=== PATIENT | male | born 1930 | race Hispanic/Latino ===

== ENCOUNTER 2017-01-18 15:00 | Observation (INO) | payer MEDICARE, BC ==
--- NOTE | 2017-01-18 15:49 | ED PDOC ---
Arrival/HPI - General Chief Complaint: Weakness/Neurological Deficit Time Seen by Provider: 01/18/17 15:01 Historian: Patient - History of Present Illness Narrative History of Present Illness (Text): 01/18/17 15:17 A 86 year old male, whose past medical history includes asthma, CAD with stent , diabetes mellitus and COPD, who presents to the emergency department complaining of the inability to speak, a cloudy sensation in the head, generalized weakness, and overall just not "feel well." Patient notes he has the episodes yesterday and again upon awaking this morning. Patient denies any headaches, body aches, unilateral weakness, fever, chills, pains or any other complaints at this time. 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 PMD: Dr. Hein Justice [address] Deputy Clerk: Dr. Sousa Time/Duration: Other Symptom Onset: Sudden Symptom Course: Intermittent Quality: Other Activities at Onset: Rest Context: Home Past Medical History - Provider Review Nursing Documentation Reviewed: Yes - Infectious Disease Hx of Infectious Diseases: None - Cardiac Hx Cardiac Disorders: Yes Hx Hypertension: Yes - Pulmonary Hx Chronic Obstructive Pulmonary Disease (COPD): Yes - Neurological Hx Neurological Disorder: No - HEENT Hx HEENT Disorder: No - Renal Hx Renal Disorder: No - Endocrine/Metabolic Hx Diabetes Mellitus Type 2: Yes - Hematological/Oncological Hx Blood Disorders: No - Integumentary Hx Dermatological Disorder: No - Musculoskeletal/Rheumatological Hx Falls: No - Gastrointestinal Hx Gastrointestinal Disorders: No Hx Gastroesophageal Reflux: Yes - Genitourinary/Gynecological Hx Genitourinary Disorders: Yes Hx Prostate Problems: Yes (enlarged) Other/Comment: yeast infections when taking abx - Psychiatric Hx Psychophysiologic Disorder: Yes Hx Anxiety: Yes Hx Substance Use: No - Surgical History Hx Cardiac Catheterization: Yes Hx Coronary Stent: Yes Hx Joint Replacement: Yes (right knee) Other/Comment: 30 yrs ago pt was in and acident injured r knee needed cartilage removed, about 2 yrs ago pt had right kne replaced, cysto for retention and enlarged prostate Family/Social History - Physician Review Nursing Documentation Reviewed: Yes Family/Social History: Unknown Family HX Smoking Status: Former Smoker Hx Alcohol Use: No Hx Substance Use: No Allergies/Home Meds Allergies/Adverse Reactions: Allergies ciprofloxacin [From Cipro] Allergy (Verified 01/18/17 15:17) RASH lactose Allergy (Verified 01/18/17 15:17) DIARRHEA Home Medications: Home Meds Medication Instructions Recorded Confirmed Albuterol 1 inh INH PRN PRN 07/13/15 07/13/15 Amoxicillin/Clavulanate Pota 1 tab PO BID 07/13/15 07/13/15 [Augmentin 875 mg-125 mg] Aspirin [Aspirin Chewable] 81 mg PO DAILY 07/13/15 07/17/15 FLUoxetine [Prozac] 20 mg PO DAILY 07/13/15 07/17/15 Fenofibrate [Tricor] 1 tab PO DAILY 07/13/15 07/13/15 Glimepiride [amaRYL] 4 mg PO DAILY 07/13/15 07/17/15 Magnesium Oxide [Mag-Ox] 500 mg PO BID 07/13/15 07/17/15 Metoprolol Succinate 25 mg PO DAILY 07/13/15 07/17/15 Omeprazole [Prilosec] 40 mg PO DAILY 07/13/15 07/17/15 Prednisone [Cordrol] 20 mg PO DAILY 07/13/15 07/17/15 Tamsulosin [Flomax] 2 cap PO DAILY 07/13/15 07/17/15 Review of Systems - Physician Review All systems were reviewed & negative as marked: Yes - Review of Systems Constitutional: Fatigue, Other (no chills). absent: Fevers Eyes: absent: Vision Changes Cardiovascular: absent: Chest Pain Gastrointestinal: absent: Abdominal Pain Musculoskeletal: absent: Back Pain, Neck Pain, Myalgias Neurological: Speech Changes, Other (cloudy sensation in head; no unilateral weakness; no numbness). absent: Headache Physical Exam Vital Signs Reviewed: Yes Vital Signs Temp Pulse Resp BP Pulse Ox 01/18/17 16:49 75 18 114/49 L 100 01/18/17 15:00 98.6 F 66 18 118/57 L 98 Temperature: Afebrile Blood Pressure: Hypotensive Pulse: Regular Respiratory Rate: Normal Appearance: Positive for: Well-Appearing, Non-Toxic, Comfortable Pain Distress: None Mental Status: Positive for: Alert and Oriented X 3 Finger Stick Blood Glucose: 217 - Systems Exam Head: Present: Atraumatic, Normocephalic Pupils: Present: PERRL Extroacular Muscles: Present: EOMI Conjunctiva: Present: Normal Mouth: Present: Moist Mucous Membranes Neck: Present: Normal Range of Motion Respiratory/Chest: Present: Clear to Auscultation, Good Air Exchange. No: Respiratory Distress, Accessory Muscle Use Cardiovascular: Present: Regular Rate and Rhythm, Normal S1, S2. No: Murmurs Abdomen: Present: Normal Bowel Sounds. No: Tenderness, Distention, Peritoneal Signs Upper Extremity: Present: Normal Inspection. No: Cyanosis, Edema Lower Extremity: Present: Edema (2+ pitting edema bilaterally) Neurological: Present: GCS=15, CN II-XII Intact, Speech Normal, Motor Func Grossly Intact, Normal Sensory Function Skin: Present: Warm, Dry, Normal Color. No: Rashes Psychiatric: Present: Alert, Oriented x 3, Normal Insight, Normal Concentration Medical Decision Making ED Course and Treatment: 01/18/17 15:17 Impression: A 86 year old male with cloudy sensation, generalized weakness, and inability to speak well. Differential Diagnosis included but are not limited to: stroke vs. electrolyte abnormalities vs. heat exhaustion Plan: -- EKG -- Head CT -- Chest x-ray -- Labs -- Urinalysis -- Reassess and disposition Prior Visits: Notes and results from previous visits were reviewed. Patient was last seen in the Emergency department on 07/13/15 with complaints of coughing and wheezing. Patient was hospitalized. Progress Notes: EKG: Ordered, reviewed, and independently interpreted the EKG. Rate : 70 BPM Rhythm : Sinus rhythm Interpretation : PVC's; 1st degree AV block Comparison : No change from previous EKG on 07/13/15 for comparison. Report Date : 01/18/2017 16:35:22 Radiography Technician : Lauryn Hood MD PROCEDURE: CT HEAD WITHOUT CONTRAST. FINDINGS: HEMORRHAGE:No intracranial hemorrhage. BRAIN:There are moderate chronic microangiopathic changes. There is no mass, mass effect or abnormal extra-axial fluid collection. VENTRICLES:There is moderate age-related global parenchymal volume loss and proportionate enlargement of the ventricles and cortical sulci. CALVARIUM:The skull base and calvarium are normal. PARANASAL SINUSES:Predominantly clear. MASTOID AIR CELLS:Predominantly clear. OTHER FINDINGS:None. IMPRESSION: No acute intracranial abnormality. If there is a persistent focal neurologic deficit and an ongoing clinical concern for acute infarction, an MRI of the brain without intravenous contrast would be a more sensitive modality for evaluation of hyperacute/acute ischemic infarction. Moderate chronic microangiopathic changes and moderate age-related global parenchymal volume loss. 01/18/17 17:26 CT Head negative. Aspirin PO ordered. Patient comfortable now and in no acutre distress. Discussed case with Dr. Hein who will place on her service. - Lab Interpretations Lab Results: 01/18/17 15:40 01/18/17 15:40 Lab Results 01/18/17 15:40: Blood Type A POSITIVE, Antibody Screen Negative, BBK History Checked No verified bt 01/18/17 15:40: Sodium 134, Potassium 4.0, Chloride 99, Carbon Dioxide 27, Anion Gap 12, BUN 23 H, Creatinine 1.0, Est GFR ( Amer) > 60, Est GFR ( Non-Af Amer) > 60, Random Glucose 209 H, Calcium 9.4, Total Bilirubin 0.8, AST 48, ALT 42, Alkaline Phosphatase 45, Troponin I < 0.01, NT-Pro-B Natriuret Pep 145, Total Protein 6.3, Albumin 3.8, Globulin 2.5, Albumin/Globulin Ratio 1.5, Triglycerides 257 H, Cholesterol 117 L, LDL Cholesterol Direct 50, HDL Cholesterol 39 01/18/17 15:40: PT 12.6 H, INR 1.17 H, APTT 26.1 01/18/17 15:40: WBC 5.2, RBC 4.15, Hgb 13.6 L, Hct 39.0 L, MCV 94.0, MCH 32.8, MCHC 34.9, RDW 13.3, Plt Count 76 L, MPV 11.0, Gran % 70.9 H, Lymph % (Auto) 21.2 L, [place] % (Auto) 6.0, Eos % (Auto) 1.7, Baso % (Auto) 0.2, Gran # 3.67, Lymph # 1.1 L, [place] # 0.3, Eos # 0.1, Baso # 0.01 I have reviewed the lab results: Yes - RAD Interpretation Radiology Orders: 01/18/17 15:21 HEAD W/O CONTRAST [CT] Stat CHEST PORTABLE [RAD] Stat - Medication Orders Current Medication Orders: Discontinued Medications Aspirin (Aspirin) 325 mg PO STAT STA Stop: 01/18/17 16:54 NIHSS Scale ([place]) Time Performed: 15:17 - How Severe is the Stoke Baseline Level of Consciousness: 0=Alert LOC to Questions: 0=Both comments correct LOC to commands: 0=Obeys both correctly Best Gaze: 0=Normal Visual: 0=No visual loss Facial: 0=Normal Motor Arm - Left: 0=No drift Motor Arm - Right: 0=No drift Motor Leg - Left: 0=No drift Motor Leg - Right: 0=No drift Limb Ataxia: 0=Absent Sensory: 0=Normal Best Language: 0=No aphasia Dysarthia: 0=Normal articulation Extinction & Inattention (Neglect): 0=Normal, no object Score: 0 Risk Level: No Stroke Risk rTPA Inclusion/Exclusion - Refusal of Treatment Patient Refused Treatment: No - Inclusion Criteria for Altepase Patient is 18 years or Older: Yes The Clinical Diagnosis of Ischemic Stroke That is Causing a Potentially Disabling Neurological Deficit: No Time of Onset is Well Established to be Less Than 270 Minute Before Treatment Would Begin: No Risk/Benefit Discussed With Patient/Family Member Present: No - Scribe Statement The provider has reviewed the documentation as recorded by the Scribkm Francois training under [facility] Provider Scribe Attestation: All medical record entries made by the Scribe were at my direction and personally dictated by me. I have reviewed the chart and agree that the record accurately reflects my personal performance of the history, physical exam, medical decision making, and the department course for this patient. I have also personally directed, reviewed, and agree with the discharge instructions and disposition. Disposition/Present on Arrival - Present on Arrival Any Indicators Present on Arrival: No History of DVT/PE: No History of Uncontrolled Diabetes: No Urinary Catheter: No History of Decub. Ulcer: No History Surgical Site Infection Following: None - Disposition Have Diagnosis and Disposition been Completed?: Yes Diagnosis: CVA (cerebral vascular accident) Disposition Time: 17:25 Patient Plan: Observation Condition: FAIR Referrals: Selvin Hein MD [Primary Care Provider] - Follow up with primary
[2017-01-18 15:51] LABS: ADD MANUAL DIFF? NO
[2017-01-18 15:58] LABS: BASO # 0.01 K/mm3 (0.0-2.0); BASO % 0.2 % (0.0-3.0); EOS # 0.1 (0.0-0.7); EOS % 1.7 % (1.5-5.0); GRAN # 3.67 (1.4-6.5); GRAN % 70.9 % (50.0-68.0); LYMPH # 1.1 (1.2-3.4); LYMPH % 21.2 % (22.0-35.0); MEAN CORPUSCULAR HEMOGLOBIN 32.8 pg (25.0-35.0); MEAN CORPUSCULAR HGB CONC 34.9 g/dl (31.0-37.0); MONO # 0.3 (0.1-0.6); PLATELET COUNT 76 10^3/uL (120.0-450.0); RED CELL DISTRIBUTION WIDTH 13.3 % (11.5-14.5); WHITE BLOOD COUNT 5.2 10^3/ul (4.5-11.0)
[2017-01-18 16:16] LABS: ALB/GLOB RATIO 1.5 (1.1-1.8); ALKALINE PHOSPHATASE 45 U/L (38-133); ALT/SGPT 42 U/L (7-56); AST/SGOT 48 U/L (15-59); BILIRUBIN,TOTAL 0.8 mg/dL (0.2-1.3); BLOOD UREA NITROGEN 23 mg/dL (7-21); CALCIUM 9.4 mg/dL (8.4-10.5); CARBON DIOXIDE 27 mmol/L (21-33); CHLORIDE 99 mmol/L (98-107); CHOLESTEROL 117 mg/dL (130-200); GFR AFRICAN-AMERICAN > 60; GLUCOSE,RANDOM 209 mg/dL (70-110); SODIUM 134 mmol/L (132-148); TOTAL PROTEIN 6.3 g/dL (5.8-8.3)
[2017-01-18 16:32] LABS: TROPONIN I < 0.01 ng/mL
--- NOTE | 2017-01-18 16:37 | CT ---
PROCEDURE: CT HEAD WITHOUT CONTRAST. HISTORY: trouble speaking well r/o CVA COMPARISON: None available. TECHNIQUE: Axial computed tomography images were obtained through the head/brain without intravenous contrast. Radiation dose: Total exam DLP = 774.23 mGy-cm. This CT exam was performed using one or more of the following dose reduction techniques: Automated exposure control, adjustment of the mA and/or kV according to patient size, and/or use of iterative reconstruction technique. FINDINGS: HEMORRHAGE: No intracranial hemorrhage. BRAIN: There are moderate chronic microangiopathic changes. There is no mass, mass effect or abnormal extra-axial fluid collection. VENTRICLES: There is moderate age-related global parenchymal volume loss and proportionate enlargement of the ventricles and cortical sulci. CALVARIUM: The skull base and calvarium are normal. PARANASAL SINUSES: Predominantly clear. MASTOID AIR CELLS: Predominantly clear. OTHER FINDINGS: None. IMPRESSION: No acute intracranial abnormality. If there is a persistent focal neurologic deficit and an ongoing clinical concern for acute infarction, an MRI of the brain without intravenous contrast would be a more sensitive modality for evaluation of hyperacute/acute ischemic infarction. Moderate chronic microangiopathic changes and moderate age-related global parenchymal volume loss.
[2017-01-18 17:07] LABS: INR 1.17 (0.93-1.08); PARTIAL THROMBOPLASTIN TIME 26.1 Seconds (23.7-30.8)
[2017-01-18 18:39] LABS: URINE APPEARANCE CLEAR (CLEAR); URINE BILIRUBIN NEGATIVE (NEGATIVE); URINE BLOOD NEGATIVE (NEGATIVE); URINE COLOR YELLOW (YELLOW); URINE GLUCOSE (UA) 100 mg/dL (NEGATIVE); URINE KETONE NEGATIVE (NEGATIVE); URINE LEUKOCYTE ESTERASE NEGATIVE Leu/uL (NEGATIVE); URINE PROTEIN NEGATIVE mg/dL (<30 mg/dL); URINE UROBILINOGEN 0.2 E.U./dL (<1 E.U./dL)
[2017-01-18] MEDS ORDERED: Magnesium Oxide 400 mg Tab UD PO SCH (19:15)
--- NOTE | 2017-01-18 19:37 | CON ---
DATE: 01/18/2017 HISTORY OF PRESENT ILLNESS: This is an 86-year-old white male with a past medical history of coronar y artery disease, asthma, diabetes, COPD, who came to the Emergency Room with the complaint of inabil ity to speak and a cloudy sensation in the head and generalized weakness. Called to evaluate the pat ient. Symptoms improved. At home he could not walk. Now he can walk. Denies any headache, no dizzi ness. PAST MEDICAL HISTORY: Coronary artery disease, diabetes, COPD. REVIEW OF SYSTEMS: A 10-point review of system was negative as noted above. ALLERGIES: TO CIPROFLOXACIN AND LACTULOSE. PHYSICAL EXAMINATION: VITAL SIGNS: Blood pressure 118/57. HEENT: Normocephalic, atraumatic. NECK: Supple. NEUROLOGIC: Alert, awake, oriented x 3. No aphasia. Cranial nerves II-XII were tested. Pupils yasmine ctive. EOM intact. Visual omer full. No facial asymmetry. Tongue midline. Motor examination: Moves all the extremities equally. Tone normal. Deep tendon reflexes 1+. Both plantars are downgoi ng. Sensory appears intact. Cerebellar, gait normal. IMPRESSION AND PLAN: Transient ischemic attack. CAT scan of the head was done, which was reported n egative. Workup in progress. Will follow up. Kailash Concepcion MD cc: [id number] TT: 01/18/2017 19:37:07 Confirmation # [id number] Dictation # [id number] juan jose
--- NOTE | 2017-01-18 20:07 | HP ---
HISTORY OF PRESENT ILLNESS: The patient is an 86-year-old, known to me from previous admission. Arian gann came from [place] to visit her daughter. She states that he was working in the back yard [facility], felt very weak, groggy. He thought he overworked, but this morning, daughter noticed that he s lurred his speech and was having difficulty finding words, so she got concerned. Her daughter who is a nurse and a nursing air conditioning supervisor in [place] suspected that he might be having a stroke, so she brou ght him to Emergency Room for further evaluation. Denies any nausea or vomiting. No history of feve r, no chills, no headaches, no significant weakness or numbness. PAST MEDICAL HISTORY: Significant for: 1. Hypertension. 2. History of congestive heart failure. The patient was admitted in 06/2015 for that. 3. Insulin-dependent diabetes. 4. Hyperlipidemia. 5. COPD. 6. Coronary artery disease, status post angioplasty for ____ and descending coronary. PAST SURGICAL HISTORY: 1. Significant for right knee replacement. 2. History of prostatectomy. 3. Percutaneous LAD angioplasty. ALLERGIES: HE IS ALLERGIC TO CIPRO AND LACTOSE. MEDICATIONS AT HOME: The patient is on Flomax 0.4 daily, Prilosec 40 mg daily. He used to be on met oprolol 25, but that has been discontinued. ____ 4 mg daily, Tricor 145 daily, Prozac 20 mg daily, a spirin 81 daily. SOCIAL HISTORY: He is , lives with his in [place], comes here to visit his daughter once in a while, usually in summertime. History of smoking in the remote past. PHYSICAL EXAMINATION: GENERAL: He is awake and alert, looks sluggish, but able to communicate. VITAL SIGNS: He is afebrile, pulse 66, respirations 18, blood pressure 116/53. LUNGS: Bilateral fair airflow, no rhonchi or crackle. HEART: S1, S2 audible. No murmur. ABDOMEN: Soft, nontender, no rebound, no guarding. NEUROLOGIC: The patient is awake and alert. No focal deficit. He does have slight slurred speech, but very subtle change from his previous exam that I did in the office. LABORATORY DATA: WBC 5.2, hemoglobin 13.6, hematocrit 39, platelets of 76. PT 12.6, INR 1.17. Chem istry: Sodium 134, potassium 4.0, chloride 99, CO2 27, BUN 23, creatinine 1.0, blood sugar of 209. LFTs are within normal limits. Triglycerides 257, cholesterol is 115. Urinalysis is unremarkable. CT scan of the head, no acute intracranial abnormality. There is a persistent focal neurological def icit an ongoing clinical concern for acute infarction. An MRI of the brain without intravenous contr ast is recommended. X-ray chest is unremarkable. ASSESSMENT: 1. Slurred speech with expressive aphasia and trouble finding words. 2. History of hypertension with multiple premature ventricular contractions. 3. Coronary artery disease, status post angioplasty. 4. Hyperlipidemia. 5. Non-insulin dependent diabetes. PLAN: We will start patient on ____ 4 mg daily. Monitor blood sugars. Aspirin was given in the ER. We will continue on that. Continue him on Tricor, Flomax. Monitor the blood sugar. Continue on m etoprolol and start him on statins and order for carotid Doppler and MRI of the brain. Cardiology co nsult by Dr. Sousa, neuro consult by Dr. Concepcion has been requested. Selvin Hein MD cc: [id number] TT: 01/18/2017 20:07:17 jas
[2017-01-18 21:24] VITALS: BMI 32.8
[2017-01-18] MEDS ORDERED: Pneumococcal 23-Valent Vaccine IM ONE (21:24)
[2017-01-18] MEDS: Levalbuterol 1.25 MG/3 ML Inhal Soln UD IH SCH (21:29)
[2017-01-18] MEDS: Insulin Lispro (humaLOG) MEDIUM Coverage SC SCH (21:50)
--- NOTE | 2017-01-18 23:33 | CARD ---
APPROVED REPORT EKG Measurement Heart [id number] <Conclusion> Sinus rhythm with 1st degree AV block with premature supraventricular complexes with occasional premature ventricular complex Left anterior fascicular block Left ventricular hypertrophy with QRS widening Abnormal ECG
--- NOTE | 2017-01-19 02:50 | CP.PCM.PN ---
Subjective - Date & Time of Evaluation Date of Evaluation: 01/19/17 Time of Evaluation: 02:44 - Subjective Subjective: called by nurse pt chandan thomas and ana worthy, ptis admitted for cva, ahs hx of pvc, htn . HR is 55 , Bp is 173 /88 pt is c/o mild tingling in the left chest area., no sob , no n/v. Objective - Vital Signs/Intake and Output Vital Signs (last 24 hours): Temp Pulse Resp BP Pulse Ox 98.6 F 54 L 18 116/57 L 98 01/18/17 21:05 01/18/17 22:00 01/18/17 21:05 01/18/17 21:05 01/18/17 18:40 Intake and Output: 01/18/17 01/19/17 18:59 06:59 Intake Total 120 Balance 120 - Medications Medications: Current Medications Aspirin (Aspirin Chewable) 81 mg PO DAILY [facility] Atorvastatin Calcium (Lipitor) 10 mg PO DIN [facility] Last Admin: 01/18/17 21:51 Dose: 10 mg Fluoxetine HCl (Prozac) 20 mg PO DAILY [facility] Glimepiride (Amaryl) 4 mg PO DAILY [facility] Insulin Human Lispro (Humalog Med) 0 units SC ACHS [facility] PRN Reason: Protocol Last Admin: 01/18/17 21:50 Dose: Not Given Levalbuterol HCl (Xopenex) 1.25 mg IH TIDRESP [facility] Last Admin: 01/18/17 21:29 Dose: 1.25 mg Magnesium Oxide (Mag-Ox) 400 mg PO DAILY [facility] Metoprolol Succinate (Toprol Xl) 25 mg PO DAILY [facility] Non-Formulary Medication (Fenofibrate [Tricor]) 1 tab PO DAILY [facility] Tamsulosin HCl (Flomax) 0.4 mg PO DAILY [facility] - Labs Labs: PT 12.6 Seconds (9.9-11.8) H 01/18/17 15:40 INR 1.17 (0.93-1.08) H 01/18/17 15:40 APTT 26.1 Seconds (23.7-30.8) 01/18/17 15:40 - Constitutional Appears: No Acute Distress - Head Exam Head Exam: NORMOCEPHALIC - Eye Exam Eye Exam: PERRL - ENT Exam ENT Exam: Mucous Membranes Moist - Neck Exam Neck Exam: Full ROM - Respiratory Exam Respiratory Exam: Clear to Ausculation Bilateral - Cardiovascular Exam Cardiovascular Exam: RRR, +S1, +S2 - Rectal Exam Rectal Exam: Deferred - Extremities Exam Extremities Exam: Normal Inspection - Neurological Exam Neurological Exam: Awake, Oriented x3 - Psychiatric Exam Psychiatric exam: Normal Affect Assessment and Plan - Assessment and Plan (Free Text) Assessment: cp / bigemni /trigemni. cva. htn . Plan: stat EKG , cardiac iso nitro s/l x1.
[2017-01-19 03:29] VITALS: O2SAT 97
[2017-01-19 03:58] LABS: TROPONIN I < 0.01 ng/mL
[2017-01-19] MEDS: Levalbuterol 1.25 MG/3 ML Inhal Soln UD IH SCH ×2 (07:47→13:23)
[2017-01-19 07:52] LABS: ALB/GLOB RATIO 1.5 (1.1-1.8); ALKALINE PHOSPHATASE 51 U/L (38-133); ALT/SGPT 45 U/L (7-56); AST/SGOT 50 U/L (15-59); BILIRUBIN,TOTAL 1.2 mg/dL (0.2-1.3); BLOOD UREA NITROGEN 24 mg/dL (7-21); CALCIUM 9.8 mg/dL (8.4-10.5); CARBON DIOXIDE 31 mmol/L (21-33); CHLORIDE 99 mmol/L (98-107); GFR AFRICAN-AMERICAN > 60; GLUCOSE,RANDOM 104 mg/dL (70-110); MAGNESIUM 1.7 mg/dL (1.7-2.2); POTASSIUM 4.4 mmol/L (3.6-5.0); SODIUM 138 mmol/L (132-148)
[2017-01-19] MEDS: Insulin Lispro (humaLOG) MEDIUM Coverage SC SCH ×2 (08:13→12:44)
[2017-01-19 09:38] VITALS: BP 146/67; RESP 20; TEMP 97.8
[2017-01-19] MEDS ORDERED: Metoprolol Succinate 50 mg XL Tab PO SCH (10:00)
[2017-01-19] MEDS ORDERED: Magnesium Oxide 400 mg Tab UD PO SCH (10:00)
--- NOTE | 2017-01-19 10:12 | US ---
PROCEDURE: Carotid artery duplex ultrasound HISTORY: Carotid stenosis TIA PHYSICIAN(S): Aquiles Barraza MD. TECHNIQUE: Duplex sonography and color-flow Doppler were used to evaluate the carotid bifurcations and limited segments of the vertebral arteries bilaterally. FINDINGS: The exam is somewhat limited by tortuous vessels. There is mild to moderate smooth heterogeneous plaque noted at the carotid bifurcations bilaterally. The peak systolic velocity in the proximal right internal carotid artery is 106 cm/sec. This corresponds to a 40-59 percent proximal right ICA stenosis. Normal systolic velocities are noted in the proximal right external carotid artery. There is antegrade flow in the right vertebral artery. The peak systolic velocity in the proximal left internal carotid artery is 94 cm/sec. This corresponds to a 20 to 39% proximal left ICA stenosis. Normal systolic velocities are noted in the proximal left external carotid artery. There is antegrade flow in the left vertebral artery. IMPRESSION: 1. 40-59 percent proximal right ICA stenosis 2. 20-39 percent proximal left ICA stenosis. 3. Antegrade flow in both vertebral arteries.
--- NOTE | 2017-01-19 10:19 | RAD ---
HISTORY: cva COMPARISON: 07/13/2015 FINDINGS: LUNGS: Extensive left basilar infiltrate. No right-sided pulmonary infiltrate. PLEURA: No significant pleural effusion identified, no pneumothorax apparent. CARDIOVASCULAR: Normal. OSSEOUS STRUCTURES: No significant abnormalities. VISUALIZED UPPER ABDOMEN: Normal. OTHER FINDINGS: None. IMPRESSION: Left basilar infiltrate. Possible pneumonia.
--- NOTE | 2017-01-19 11:04 | MRI ---
PROCEDURE: MRI BRAIN WITHOUT CONTRAST HISTORY: cva COMPARISON: None. TECHNIQUE: Multiplanar, multisequence MR images of the brain were obtained without intravenous contrast enhancement. FINDINGS: HEMORRHAGE: None DWI: No evidence of an acute or early subacute infarction. BRAIN PARENCHYMA: No mass effect or edema. There is patchy extensive multiple foci of white matter signal hyperintensities in coronal radiata and centrum semiovale statistically most likely secondary to chronic microvascular ischemic disease. VENTRICLES: Unremarkable. No hydrocephalus. CRANIUM: Unremarkable. ORBITS: Grossly unremarkable. PARANASAL SINUSES/MASTOIDS: Clear VASCULAR SYSTEM: Skull base flow voids intact. OTHER FINDINGS: None. IMPRESSION: Chronic microvascular ischemic disease.
[2017-01-19] MEDS ORDERED: Insulin Lispro (humaLOG) MEDIUM Coverage SC ONE (12:43)
[2017-01-19 14:41] VITALS: PULSE 63
--- NOTE | 2017-01-19 18:02 | CARD ---
APPROVED REPORT EKG Measurement Heart [id number] <Conclusion> Sinus bradycardia with 1st degree AV block with premature atrial complexes and premature ventricular complexes or fusion comp Left axis deviation Left ventricular hypertrophy with QRS widening Abnormal ECG
--- NOTE | 2017-01-19 23:58 | DS ---
DATE OF DISCHARGE: 01/19/2017 DISCHARGE DIAGNOSES: 1. Slurring of speech, resolved. 2. Anemia. 3. Thrombocytopenia. 4. Coronary artery disease. 5. Diabetes mellitus type 2. HOSPITAL COURSE: The patient is an 86-year-old male admitted to the hospital with slurring of speech. He was visiting from [place] with slurring of speech resolved during hospitalization. CAT scan of the head did not show any acute changes. MRI of the brain showed chronic microvascular changes. No acute infarction or bleed. EKG showed premature beats. He was evaluated by cardiology, Dr. Sousa, neurology consultation with Dr. Concepcion. He is being discharged in stable condition. PHYSICAL EXAMINATION: GENERAL: On discharge, comfortable in bed, in no acute distress. NEUROLOGIC: Awake, alert, oriented. VITAL SIGNS: Temperature 97.8, heart rate is 60 per minute, blood pressure 110/ 70. HEENT: Normal. NECK: No lymphadenopathy. CHEST: Air entry present, equal bilateral. No added sound. CARDIOVASCULAR: S1, S2 normal. No murmur, no gallop. ABDOMEN: Soft, nontender. No hepatosplenomegaly. CENTRAL NERVOUS SYSTEM: Alert, oriented x 3. No sensorimotor deficit. LYMPHADENOPATHY: None. LABORATORY DATA: On discharge, white count 5.2, hemoglobin 13.6, hematocrit 39 , platelet count 76,000. Glucose 245. CONDITION ON DISCHARGE: Stable. DISPOSITION: Discharge home. DISCHARGE MEDICATIONS: Aspirin 81 mg daily, Lipitor 10 mg daily, Tricor 145 mg daily, Prozac 20 mg daily, Amaryl 4 mg daily, Xopenex inhalation, metoprolol 25 mg daily, mag oxide 400 mg daily, Flomax 0.4 mg daily. FOLLOWUP: Follow up with Dr. Hein in 1 week. Follow up with Dr. Sousa in 1 week. Follow up with Dr. Concepcion in 1 week. Discussed with the staff nurse. Prescriptions given. Time spent in preparing discharge and coordinating care, 55 minutes. Halie Bob MD cc: [id number] TT: 01/19/2017 23:57:07 rosa BAXTER
--- NOTE | 2017-01-22 08:31 | CON ---
DATE: 01/19/2017 REASON FOR CONSULTATION AND FOLLOWUP: Cardiac evaluation, history of coronary artery disease, histor y of PTCA in the past, admitted with shortness of breath. BRIEF CLINICAL HISTORY: This is an 86-year-old male with past medical history of coronary artery dis ease, history of PTCA, diabetes, hypertension, hyperlipidemia, COPD, who recently came from [place] w here he was visiting his daughter. He said he was working in the backyard, felt very weak, groggy, w n[place] complained that there is shortness of breath. , the patient himself says no new shortness of breath. Daughter was not sure whether short of breath and mentally not with it, so brought here. Denies any chest pain, shortness of breath, any palpitation now. PAST MEDICAL HISTORY: Significant for diabetes, hypertension, hyperlipidemia, COPD, history of angio plasty 15 years ago in [facility], history of left heart catheterization 07/16/2015, nonobstru ctive CAD. SOCIAL HISTORY: Denies any ____ of smoking, used to smoke, quit 15 years ago. PAST SURGICAL HISTORY: Significant for right knee replacement as well as prostatectomy, history of c ardiac catheterization, history of angioplasty 15 years ago, history of cardiac catheterization in , nonobstructive coronary artery disease. RECENT CARDIAC WORKUP FOLLOWS: The patient had a cardiac catheterization on 07/16/2015 that shows nonobstructive coronary artery disease, patent stent in the proximal LAD, mid and distal LAD diffuse ly diseased 55% stenosis, borderline enlarged LV size, ejection fraction 45%-____%, EDP was in the ra nge 14-18. Medical treatment recommended. The patient had echocardiography done on 07/14/2015 that shows ejection fraction 55%-60%, moderate to severe mitral regurgitation, mild to moderate prolapse o f mitral valve leaflet, moderate tricuspid regurgitation, RV systolic pressure of 47. REVIEW OF SYSTEMS: As per HPI. CURRENT MEDICATIONS: The patient is taking at home: Flomax, omeprazole, metoprolol succinate, once a day insulin, glimepiride, atorvastatin and aspirin. REVIEW OF SYSTEMS: As per HPI. PHYSICAL EXAMINATION: VITAL SIGNS: Temperature afebrile, heart rate 60, blood pressure ____ /67. HEENT: PERRLA. Extraocular muscles intact. NECK: Supple. No carotid bruits. No thyromegaly. CHEST: Clear to auscultation. HEART: S1, S2 regular. ABDOMEN: Soft. EXTREMITIES: Clubbing and cyanosis negative. LABORATORY DATA: Blood workup as follows: WBC 5.____, hemoglobin 13, hematocrit 38.9, platelet coun t 76. Chemistry shows sodium 130, potassium 4.4, chloride ____ 31, anion gap 12, BUN 24, creatinine 1.0. Troponin 0.0 negative. IMPRESSION: Generalized weakness, no evidence of acute myocardial infarction, history of cardiac cat heterization 07/16/2015, nonobstructive coronary artery disease, patent stent in left anterior descen ding, history of a stent in left anterior descending, history of stent, percutaneous transluminal cor onary angioplasty of the left anterior descending 15 years ago, diabetes, hypertension, hyperlipidemi a. EKG shows normal sinus with ____ PVCs . RECOMMENDATIONS: Resume back beta demarcus. Follow up CPK, troponin, if remains negative, the patien t ____, will discuss with . ____ , discuss with Dr. Bob. Thank you Dr. Bob, for providing the opportunity in taking care of the patient. CV status is stable. Steve Sousa MD cc: [id number] TT: 01/19/2017 21:59:40 Confirmation # [id number] Dictation # [id number] rae
== END 2017-01-19 18:21 | disposition home or self-care (01) ==
LOC: ED 15:00 → ERH 17:24 → 3RSO 18:41
PROVIDERS: ADMIT Internal Medicine; ATTEND Internal Medicine
DX: R47.81 Slurred speech (principal); R47.01 Aphasia; I49.3 Ventricular premature depolarization; R53.1 Weakness; I11.0 Hypertensive heart disease with heart failure; I50.9 Heart failure, unspecified; D64.9 Anemia, unspecified; D69.6 Thrombocytopenia, unspecified; E11.9 Type 2 diabetes mellitus without complications; R00.8 Other abnormalities of heart beat; I25.10 Atherosclerotic heart disease of native coronary artery without angina pectoris; J44.9 Chronic obstructive pulmonary disease, unspecified; E78.5 Hyperlipidemia, unspecified; Z79.84 Long term (current) use of oral hypoglycemic drugs; Z95.5 Presence of coronary angioplasty implant and graft; Z96.651 Presence of right artificial knee joint; Z79.82 Long term (current) use of aspirin; Z87.891 Personal history of nicotine dependence
CPT/HCPCS: 36415; 70450; 70551; 71010; 80053; 80061; 81003; 82550; 82948; 83036; 83615; 83735; 83880; 84100; 84484; 85025; 85610; 85730; 86850; 86900; 93005; 93880; 94640; 97116; 97161; 99285; G0378; G8978; G8979; G8980